=== PATIENT | female | born 1960 | race American Indian/Alaskan Native ===

== ENCOUNTER 2022-01-28 22:10 | Emergency (ER) | payer SELFPAY ==
[2022-01-28] MEDS ORDERED: ONDANSETRON 4 MG/2 ML INJ IV ONE (22:37)
--- NOTE | 2022-01-28 22:42 | Emergency Department Report ---
HPI - HPI HPI: Room 7 The patient is a 61-year-old female present with chief complaint of altered mental status. The patiently reportedly had a THC marijuana edible approximately 3 hours prior to arrival. Family states the patient began "acting delusional" stating she was calling people by the wrong name and very slow to respond/express herself. Patient then developed nausea and vomiting was brought to the emergency department. In the ED the patient is very drowsy. Patient awakens with tactile and verbal stimuli and acknowledges she just feels tired and sleepy and denies other complaints. <ÓSCAR MCPHERSON - Last Filed: 01/29/22 00:28> <DENISSE DELCID - Last Filed: 01/29/22 07:29> - General Chief Complaint: Overdose Time Seen by Provider: 01/28/22 22:30 ED Past Medical Hx - Past Medical History Previous Medical History?: No Additional medical history: "Sinus problems" - Surgical History Past Surgical History?: No Additional Surgical History: Unknown - Family History Family history: no significant - Social History Smoking Status: Never Smoker Substance Use Type: Alcohol (Occasional), Marijuana <ÓSCAR MCPHERSON - Last Filed: 01/29/22 00:28> <DENISSE DELCID - Last Filed: 01/29/22 07:29> - Medications Home Medications: Home Medications Medication Instructions Recorded Confirmed Last Taken Type Naloxone HCl [Narcan Nasal [place]] 4 mg NS PRN PRN #1 spray 01/29/22 Unknown Rx Ondansetron [Zofran Odt] 4 mg PO Q8HR PRN #20 tab.rapdis 01/29/22 Unknown Rx ED Review of Systems ROS: Stated complaint: INGESTION,VOMITING Other details as noted in HPI Comment: Unobtainable due to pts medical conditions <ÓSCAR MCPHERSON - Last Filed: 01/29/22 00:28> ROS: Stated complaint: INGESTION,VOMITING Other details as noted in HPI <DENISSE DELCID - Last Filed: 01/29/22 07:29> Physical Exam - Physical Exam Vital Signs: Vital Signs 01/28/22 22:14 Temperature 98.3 F Pulse Rate 70 Respiratory 16 Rate Blood Pressure 148/78 [Right] O2 Sat by Pulse 96 Oximetry Physical Exam: GENERAL: The patient is well-developed well-nourished female sleeping on stretcher with emesis bag laying on her chest. [] HEENT: Normocephalic. Atraumatic. Patient has moist mucous membranes. NECK: Supple. Trachea midline CHEST/LUNGS: Clear to auscultation. There is no respiratory distress noted. HEART/CARDIOVASCULAR: Regular. There is no tachycardia. There is no gallop rub or murmur. ABDOMEN: Abdomen is soft, nontender. Patient has normal bowel sounds. There is no abdominal distention. SKIN: There is no rash. There is no edema. There is no diaphoresis. NEURO: The patient is drowsy and awakens to verbal and tactile stimuli. The pat ient has no focal neurologic deficits. The patient has normal speech MUSCULOSKELETAL: There is no evidence of acute injury. <ÓSCAR MCPHERSON - Last Filed: 01/29/22 00:28> - Physical Exam Vital Signs: Vital Signs 01/28/22 01/28/22 01/28/22 22:14 22:42 22:55 Temperature 98.3 F Pulse Rate 70 87 Respiratory 16 18 Rate Blood Pressure 148/78 120/67 [Right] O2 Sat by Pulse 96 97 97 Oximetry 01/29/22 01/29/22 00:48 04:59 Temperature Pulse Rate 78 70 Respiratory 16 Rate Blood Pressure 169/76 152/80 [Right] O2 Sat by Pulse 96 Oximetry <DENISSE DELCID - Last Filed: 01/29/22 07:29> ED Course Vital Signs 01/28/22 22:14 Temperature 98.3 F Pulse Rate 70 Respiratory 16 Rate Blood Pressure 148/78 [Right] O2 Sat by Pulse 96 Oximetry <ÓSCAR MCPHERSON - Last Filed: 01/29/22 00:28> Vital Signs 01/28/22 01/28/22 01/28/22 22:14 22:42 22:55 Temperature 98.3 F Pulse Rate 70 87 Respiratory 16 18 Rate Blood Pressure 148/78 120/67 [Right] O2 Sat by Pulse 96 97 97 Oximetry 01/29/22 01/29/22 00:48 04:59 Temperature Pulse Rate 78 70 Respiratory 16 Rate Blood Pressure 169/76 152/80 [Right] O2 Sat by Pulse 96 Oximetry - Reevaluation(s) Reevaluation #1: 01/29/22 07:26 Patient seen and evaluated. She is awake and alert to name, location and month. She is ambulatory with a slightly unsteady gait. She reports recreational ingestion. She denies homicidality and suicidality. She denies physical pain. She has the phone number of her family member that she can call to obtain pickup. She is saturating well on room air, and in no acute distress. Patient advised to abstain from recreational drug consumption <DENISSE DELCID - Last Filed: 01/29/22 07:29> ED Medical Decision Making - Lab Data Result diagrams: 01/28/22 23:23 - Radiology Data Radiology results: report reviewed (CT head), image reviewed (CT head) [facility] [address] [place] [address] Cat Scan Report Signed Patient: STEFFANIE CAMPOS MR#: [id number] : 1959 Acct:[id number] Age/Sex: 61 / F ADM Date: 01/28/22 Loc: ED Attending Dr: Ordering Physician: ÓSCAR MCPHERSON MD Date of Service: 01/28/22 Procedure(s): CT head/brain wo con Accession Number(s): [id number] cc: ÓSCAR MCPHERSON MD CT HEAD WITHOUT CONTRAST INDICATION / CLINICAL INFORMATION: Altered mental status. TECHNIQUE: CT head was performed without administration of intravenous contrast. All CT scans at this location are performed using CT dose reduction for ALARA by means of automated exposure contr ol. COMPARISON: None available. FINDINGS: CEREBRAL HEMISPHERES: There is no evidence of large territorial infarction or significant abnormality of perdomo-white matter differentiation. Ventricles within normal limits. No midline shift. Basal cisterns patent. HEMORRHAGE: None. CEREBELLUM / BRAINSTEM: No significant abnormality. ORBITS: No significant abnormality. SOFT TISSUES: No significant abnormality. SKULL: No significant abnormality. PARANASAL SINUSES / MASTOID AIR CELLS: Complete opacification of bilateral ethmoid and sphenoid air cells. Mucoperiosteal thickening of the bilateral frontal air cells. ADDITIONAL FINDINGS: None. IMPRESSION: 1. No acute intracranial abnormality. 2. Paranasal sinus disease as detailed. Signer Name: Marvin Clay II, MD Signed: 01/29/2022 12:20 AM Workstation Name: [id number] Transcribed By: CHRISTIAN Dictated By: MARVIN CLAY II, MD Electronically Authenticated By: MARVIN CLAY II, MD Signed Date/Time: 01/29/2219 DD/ - Differential Diagnosis Marijuana intoxication, alcohol intoxication, metabolic encephalopathy, ICH <ÓSCAR MCPHERSON - Last Filed: 01/29/22 00:28> - Lab Data Result diagrams: 01/28/22 23:23 01/28/22 23:23 Vital Signs 01/28/22 01/28/22 01/28/22 22:14 22:42 22:55 Temperature 98.3 F Pulse Rate 70 87 Respiratory 16 18 Rate Blood Pressure 148/78 120/67 [Right] O2 Sat by Pulse 96 97 97 Oximetry 01/29/22 01/29/22 00:48 04:59 Temperature Pulse Rate 78 70 Respiratory 16 Rate Blood Pressure 169/76 152/80 [Right] O2 Sat by Pulse 96 Oximetry Lab Results 01/28/22 01/28/22 01/28/22 Range/Units 23:23 23:23 23:23 WBC 11.9 H (4.5-11.0) K/mm3 RBC 4.05 (3.65-5.03) M/mm3 Hgb 12.3 (10.1-14.3) gm/dl Hct 37.1 (30.3-42.9) % MCV 92 (79-97) fl MCH 30 (28-32) pg MCHC 33 (30-34) % RDW 13.4 (13.2-15.2) % Plt Count 237 (140-440) K/mm3 Lymph % (Auto) 5.8 L (13.4-35.0) % [place] % (Auto) 3.9 (0.0-7.3) % Eos % (Auto) 0.1 (0.0-4.3) % Baso % (Auto) 0.4 (0.0-1.8) % Lymph # (Auto) 0.7 L (1.2-5.4) K/mm3 [place] # (Auto) 0.5 (0.0-0.8) K/mm3 Eos # (Auto) 0.0 (0.0-0.4) K/mm3 Baso # (Auto) 0.0 (0.0-0.1) K/mm3 Seg Neutrophils % 89.8 H (40.0-70.0) % Seg Neutrophils # 10.6 H (1.8-7.7) K/mm3 Sodium 141 (137-145) mmol/L Potassium 4.4 (3.6-5.0) mmol/L Chloride 103.1 (98-107) mmol/L Carbon Dioxide 23 (22-30) mmol/L Anion Gap 19 mmol/L BUN 8 (7-17) mg/dL Creatinine 0.8 (0.6-1.2) mg/dL Estimated GFR > 60 ml/min BUN/Creatinine Ratio 10 % Glucose 120 H (65-100) mg/dL Calcium 9.5 (8.4-10.2) mg/dL Total Bilirubin 0.40 (0.1-1.2) mg/dL AST 19 (5-40) units/L ALT 11 (7-56) units/L Alkaline Phosphatase 90 (35-129) units/L Ammonia 20.0 L (25-60) umol/L Total Creatine Kinase 149 H (30-135) units/L CK-MB (CK-2) 2.0 (0.0-4.0) ng/mL CK-MB (CK-2) Rel Index 1.3 (0-4) Troponin T < 0.010 (0.00-0.029) ng/mL Total Protein 6.9 (6.3-8.2) g/dL Albumin 4.3 (3.9-5) g/dL Albumin/Globulin Ratio 1.7 % Urine Color (Yellow) Urine Turbidity (Clear) Urine pH (5.0-7.0) Ur Specific [place] (1.003-1.030) Urine Protein (Negative) mg/dL Urine Glucose (UA) (Negative) mg/dL Urine Ketones (Negative) mg/dL Urine Blood (Negative) Urine Nitrite (Negative) Urine Bilirubin (Negative) Urine Urobilinogen (<2.0) mg/dL Ur Leukocyte Esterase (Negative) Urine WBC (Auto) (0.0-6.0) /HPF Urine RBC (Auto) (0.0-6.0) /HPF U Epithel Cells (Auto) (0-13.0) /HPF Urine Bacteria (Auto) (Negative) /HPF Urine Mucus /HPF Urine Opiates Screen Urine Methadone Screen Ur Barbiturates Screen Ur Phencyclidine Scrn Ur Amphetamines Screen U Benzodiazepines Scrn Urine Cocaine Screen U Marijuana (THC) Screen Drugs of Abuse Note Plasma/Serum Alcohol (0-0.07) % 01/28/22 01/29/22 01/29/22 Range/Units 23:23 02:46 02:46 WBC (4.5-11.0) K/mm3 RBC (3.65-5.03) M/mm3 Hgb (10.1-14.3) gm/dl Hct (30.3-42.9) % MCV (79-97) fl MCH (28-32) pg MCHC (30-34) % RDW (13.2-15.2) % Plt Count (140-440) K/mm3 Lymph % (Auto) (13.4-35.0) % [place] % (Auto) (0.0-7.3) % Eos % (Auto) (0.0-4.3) % Baso % (Auto) (0.0-1.8) % Lymph # (Auto) (1.2-5.4) K/mm3 [place] # (Auto) (0.0-0.8) K/mm3 Eos # (Auto) (0.0-0.4) K/mm3 Baso # (Auto) (0.0-0.1) K/mm3 Seg Neutrophils % (40.0-70.0) % Seg Neutrophils # (1.8-7.7) K/mm3 Sodium (137-145) mmol/L Potassium (3.6-5.0) mmol/L Chloride (98-107) mmol/L Carbon Dioxide (22-30) mmol/L Anion Gap mmol/L BUN (7-17) mg/dL Creatinine (0.6-1.2) mg/dL Estimated GFR ml/min BUN/Creatinine Ratio % Glucose (65-100) mg/dL Calcium (8.4-10.2) mg/dL Total Bilirubin (0.1-1.2) mg/dL AST (5-40) units/L ALT (7-56) units/L Alkaline Phosphatase (35-129) units/L Ammonia (25-60) umol/L Total Creatine Kinase (30-135) units/L CK-MB (CK-2) (0.0-4.0) ng/mL CK-MB (CK-2) Rel Index (0-4) Troponin T (0.00-0.029) ng/mL Total Protein (6.3-8.2) g/dL Albumin (3.9-5) g/dL Albumin/Globulin Ratio % Urine Color Straw (Yellow) Urine Turbidity Clear (Clear) Urine pH 7.0 (5.0-7.0) Ur Specific [place] 1.006 (1.003-1.030) Urine Protein <15 mg/dl (Negative) mg/dL Urine Glucose (UA) Neg (Negative) mg/dL Urine Ketones Neg (Negative) mg/dL Urine Blood Neg (Negative) Urine Nitrite Neg (Negative) Urine Bilirubin Neg (Negative) Urine Urobilinogen < 2.0 (<2.0) mg/dL Ur Leukocyte Esterase Neg (Negative) Urine WBC (Auto) 1.0 (0.0-6.0) /HPF Urine RBC (Auto) 1.0 (0.0-6.0) /HPF U Epithel Cells (Auto) 1.0 (0-13.0) /HPF Urine Bacteria (Auto) 1+ (Negative) /HPF Urine Mucus Few /HPF Urine Opiates Screen Negative Urine Methadone Screen Negative Ur Barbiturates Screen Negative Ur Phencyclidine Scrn Negative Ur Amphetamines Screen Negative U Benzodiazepines Scrn Negative Urine Cocaine Screen Negative U Marijuana (THC) Screen Positive Drugs of Abuse Note Disclamer Plasma/Serum Alcohol < 0.01 (0-0.07) % - EKG Data -: EKG Interpreted by [place] EKG shows normal: sinus rhythm Rate: normal - EKG Data When compared to previous EKG there are: previous EKG unavailable 01/29/22 07:26 EKG is interpreted at 23: 25 Sinus rhythm, 86 bpm. Left axis deviation, left anterior fascicular block. Normal P wave axis, MO interval 209 ms. QTc 4 6 3 ms. This is an abnormal EKG. This is not a STEMI. <DENISSE DELCID - Last Filed: 01/29/22 07:29> Critical care attestation.: If time is entered above; I have spent that time in minutes in the direct care of this critically ill patient, excluding procedure time. <ÓSCAR MCPHERSON - Last Filed: 01/29/22 00:28> Critical care attestation.: If time is entered above; I have spent that time in minutes in the direct care of this critically ill patient, excluding procedure time. <DENISSE DELCID - Last Filed: 01/29/22 07:29> ED Disposition <YAANasreenÓSCAR - Last Filed: 01/29/22 00:28> Is pt being admited?: No Does the pt Need Aspirin: No <DENISSE DELCID - Last Filed: 01/29/22 07:29> Clinical Impression: Marijuana use, Transient alteration of awareness Disposition: 01 HOME / SELF CARE / HOMELESS Condition: Good Instructions: Cannabis Use Disorder, Substance Use Disorder Additional Instructions: Recommend that patient avoid consumption of alcohol, tobacco, marijuana, and recreational drugs. Consumption of recreational drugs may cause addiction, respiratory arrest, , disability, paralysis, loss of quality of life. We also recommend that the patient not drive or operate motor vehicles, until cleared to do so by her primary care doctor. We recommend follow-up with a primary care doctor in the next 48 to 72 hours. Please return to the emergency room right away with new pain, worsened pain, migration of pain, projectile vomiting, change in mental status, confusion, inability tolerate liquid feeds, new, worsened or different symptoms not present on the initial emergency room evaluation Referrals: [facility]. Health Depart [Outside] - 3-5 Days [facility] [Outside] - 3-5 Days
[2022-01-29 00:04] LABS: Alanine Aminotransferase 11 units/L (7-56); Albumin 4.3 g/dL (3.9-5); BUN/Creatinine Ratio 10; Blood Urea Nitrogen 8 mg/dL (7-17); Calcium 9.5 mg/dL (8.4-10.2); Hemolysis Index 8
--- NOTE | 2022-01-29 00:24 | Cat Scan Report ---
CT HEAD WITHOUT CONTRAST INDICATION / CLINICAL INFORMATION: Altered mental status. TECHNIQUE: CT head was performed without administration of intravenous contrast. All CT scans at this location are performed using CT dose reduction for ALARA by means of automated exposure control. COMPARISON: None available. FINDINGS: CEREBRAL HEMISPHERES: There is no evidence of large territorial infarction or significant abnormality of perdomo-white matter differentiation. Ventricles within normal limits. No midline shift. Basal ciste rns patent. HEMORRHAGE: None. CEREBELLUM / BRAINSTEM: No significant abnormality. ORBITS: No significant abnormality. SOFT TISSUES: No significant abnormality. SKULL: No significant abnormality. PARANASAL SINUSES / MASTOID AIR CELLS: Complete opacification of bilateral ethmoid and sphenoid air c ells. Mucoperiosteal thickening of the bilateral frontal air cells. ADDITIONAL FINDINGS: None. IMPRESSION: 1. No acute intracranial abnormality. 2. Paranasal sinus disease as detailed. Signer Name: David Sandoval II, MD Signed: 01/29/2022 12:20 AM Workstation Name: [id number]
[2022-01-29 02:32] LABS: Basophils % (Auto) 0.4 % (0.0-1.8); Eosinophils % (Auto) 0.1 % (0.0-4.3); Hematocrit 37.1 % (30.3-42.9); Hemoglobin 12.3 gm/dl (10.1-14.3); Lymphocytes # (Auto) 0.7 K/mm3 (1.2-5.4); Lymphocytes % (Auto) 5.8 % (13.4-35.0); Mean Corpuscular HGB Conc 33 % (30-34); Mean Corpuscular Volume 92 fl (79-97); Monocytes # (Auto) 0.5 K/mm3 (0.0-0.8); Monocytes % (Auto) 3.9 % (0.0-7.3); Platelet Count 237 K/mm3 (140-440); Red Blood Count 4.05 M/mm3 (3.65-5.03); Red Cell Distribution Width 13.4 % (13.2-15.2)
[2022-01-29 03:59] LABS: Bacteria,Urine 1+ /HPF (Negative); Bilirubin,Urine NEG (Negative); Blood,Urine NEG (Negative); Color,Urine Straw (Yellow); Mucus,Urine FEW /HPF; Protein,Urine <15 mg/dL mg/dL (Negative); Urobilinogen,Urine < 2.0 mg/dL (<2.0)
[2022-01-29 04:03] LABS: Amphetamine Screen,Urine Negative; Benzodiazepines Screen,Urine Negative; Cocaine Screen,Urine Negative; Methadone Screen,Urine Negative; Opiate Screen,Urine Negative
[2022-01-29 04:59] VITALS: BP 152/80
[2022-01-29 05:23] LABS: Cannabinoid Screen,Urine Positive
== END 2022-01-29 08:03 | disposition home or self-care (01) ==
LOC: ED 22:10
DX: F15.90 Other stimulant use, unspecified, uncomplicated (principal); R40.4 Transient alteration of awareness
CPT/HCPCS: 36415; 70450; 80053; 80307; 81001; 82140; 82550; 82553; 84484; 85025; 93005; 96374; 99284; J2405; 80320; G0480